=== PATIENT | female | born 1955 | race Caucasian/White ===

== ENCOUNTER 2023-12-27 06:19 | Day surgery (SDC) | payer BC, MEDICARE ==
[2023-12-26 14:28] VITALS: BMI 20.9
[~2023-12-27 06:19] MED LIST: EPINEPHrine 0.3 MG in Ophthalmic Irrigation Solution 500 ML IRR SCH
[2023-12-27] MEDS ORDERED: Cyclopentolate W/ Phenylephrin 40 DROP/2 ML BOT ONE (07:00)
[2023-12-27] MEDS ORDERED: Midazolam HCl 2 mg/2 ml Vial ONE (07:21)
[2023-12-27] MEDS ORDERED: PROPOFOL 20 ML ONE (07:21)
[2023-12-27] MEDS ORDERED: Lidocaine 4% PF 5 ML AMP ONE (07:55)
[2023-12-27] MEDS ORDERED: Maxitrol 0.1% Opth Oint 3.5 GM TUBE ONE (07:55)
[2023-12-27] MEDS ORDERED: Triamcinolone 40 MG/ML VIAL ONE (07:55)
[2023-12-27] MEDS ORDERED: Lidocaine 1% PF 5 ML VIAL ONE (07:55)
[2023-12-27] MEDS ORDERED: CEFAZOLIN 1 GM VIAL ONE (07:55)
[2023-12-27] MEDS ORDERED: Bupivacaine 0.75% 10 ML VIAL ONE (07:55)
== END 2023-12-27 09:05 | disposition home or self-care (01) ==
LOC: SDC 06:19
PROVIDERS: ATTEND Ophthalmology Retina Specialist
PROC: 08953ZZ Drainage of Left Vitreous, Percutaneous Approach (ICD-10-PCS; principal; 2023-12-27)
DX: H43.392 Other vitreous opacities, left eye (principal)
CPT/HCPCS: J0171; J0690; J2250; J2704; J3301; J3490

== ENCOUNTER 2025-07-23 09:44 | Emergency (ER) | payer BC, MEDICARE ==
[2025-07-23] MEDS ORDERED: diphenhydrAMINE 50 MG/ML VIAL ONE (11:06)
[2025-07-23] MEDS ORDERED: Metoclopramide HCl 10 MG (2 mL) VIAL ONE (11:06)
[2025-07-23 11:15] LABS: Bacteria/HPF 1+ HPF (None Seen); CAUTI Indications for Culture Dysuria,urgency,freq; Glucose, Urine (Dipstick) Normal (Negative); Leukocyte Negative Leu/uL (Negative); Protein, Urine (Dipstick) Negative (Neg-Trace); Specific Gravity, Urine 1.018 (1.002-1.036); WBC/HPF 0-3 HPF (0-3)
[2025-07-23 11:16] LABS: Urine Culture Reflex No No
[2025-07-23 12:00] LABS: #Basophils 0.06 10x3/uL (0.0-0.2); #Eosinophils 0.07 10x3/uL (0.0-0.7); #Monocytes 1.06 10x3/uL (0.11-0.59); #Neutrophils 11.74 10x3/uL (1.40-6.50); %Basophils 0.4 % (0.0-1.0); %Eosinophils 0.4 % (0.0-10.0); %Lymphocytes 18.6 % (21.0-51.0); %Monocytes 6.6 % (0.0-10.0); %Neutrophils 73.6 % (42.0-75.0); Hematocrit 36.5 % (36.0-47.0); Hemoglobin 12.1 g/dL (12.0-16.0); Mean Corpuscular Hemoglobin 31.5 pg (27.0-31.0); Mean Corpuscular Volume 95.1 fL (78.0-98.0); Platelet Count 254 10x3/uL (130-400); Red Blood Cell (RBC) Count 3.84 mill/uL (4.20-5.40); White Blood Cell (WBC) Count 15.95 10x3/uL (4.8-10.8)
[2025-07-23 12:23] LABS: ALT (SGPT) 19 U/L (Less than 34); AST (SGOT) 22 U/L (11-34); Albumin 3.5 g/dL (3.1-4.5); Alkaline Phosphatase 57 U/L (40-110); Anion Gap 14 mmol/L (10-20); BUN (Urea Nitrogen) 11 mg/dL (9.8-20.1); Bilirubin, Total 0.5 mg/dL (0.3-1.2); Calc. Creatinine Clearance 0 mL/min (70-130); Calcium 8.7 mg/dL (7.8-10.44); Carbon Dioxide 25 mmol/L (23-31); Chloride 101 mmol/L (98-107); Globulin 2.7 g/dL (2.4-3.5); Glucose 83 mg/dL (83-110); Lipase 9 U/L (8-78); Potassium 3.6 mmol/L (3.5-5.1); Sodium 136 mmol/L (136-145)
[2025-07-23] MEDS ORDERED: cefTRIAXone (ROCEPHIN) 1 GM VIAL ONE (15:02)
== END 2025-07-23 15:35 | disposition home or self-care (01) ==
LOC: ERS 09:44
DX: K52.9 Noninfective gastroenteritis and colitis, unspecified (principal)
CPT/HCPCS: 74176; 80053; 81001; 83690; 84484; 85025; 93005; 96365; 96366; 96367; 96372; 96375; J0696; J1200; J2765